=== PATIENT | male | born 2000 | race Two or more races ===

== ENCOUNTER 2020-04-23 03:56 | Emergency (ER) | payer SELFPAY ==
[~2020-04-23] VITALS: Ht 185.4 cm; Wt 131.5 kg
[2020-04-23 04:17] VITALS: BP 132/77
== END 2020-04-23 05:42 | disposition left against medical advice (07) ==
LOC: ER 03:56
DX: R07.89 Other chest pain (principal); Z53.21 Procedure and treatment not carried out due to patient leaving prior to being seen by health care provider
CPT/HCPCS: 71045; 93005